=== PATIENT | male | born 1990 | race Caucasian/White ===

== ENCOUNTER 2020-06-08 21:19 | Emergency (ER) | payer SELFPAY ==
[2020-06-08] MEDS ORDERED: POVIDONE IODINE 10 % 15 ML UD TOP ONE (21:37)
[2020-06-08] MEDS ORDERED: LIDOCAINE 1% W/ EPINEPHRINE 20 ML VIAL INJ ONE (21:38)
[2020-06-08] MEDS ORDERED: ALPRAZolam 0.25 MG TAB PO ONE (21:43)
[2020-06-08] MEDS ORDERED: SULFA/TRIMETH 800/160 (DS) TAB 1 EA TAB PO ONE (21:48)
--- NOTE | 2020-06-08 22:17 | ED.PDOC ---
History of Present Illness - General Chief Complaint: Laceration Stated Complaint: laceration to Rt leg Time Seen by Provider: 06/08/20 21:43 Source: patient Exam Limitations: no limitations - History of Present Illness Initial Comments: The patient is a 30-year-old male presents emergency room after having cut his right lateral lower leg with one of his hunting knives accidentally this evening while sharpening it. The patient is obviously inebriated. He denies it being intentional. He reports that there is good sensation in the foot distal. He does have a mild numb area just immediately distal to it on the lateral lower leg. Normal dorsalis pedis and posterior tibialis pulses. Good capillary refill. Strength is preserved. Laceration extends through the skin and through the subcutaneous tissue just to the exterior of the muscle belly. Estimated blood loss prior to arrival was probably 30 cc. No other obvious injuries. The patient does report significant anxiety with a cut. He reports that the knife was clean. He reports that his last tetanus shot was around 3 or 4 years ago. He denies any drug allergies. Timing/Duration: 1-3 hours Severity: moderate Improving Factors: nothing Worsening Factors: nothing Associated Symptoms: denies symptoms Allergies/Adverse Reactions: Allergies NO KNOWN ALLERGY Allergy (Verified 06/08/20 22:09) Home Medications: Ambulatory Orders Sulfa/Trimeth 800/160 (Ds) Tab [Bactrim DS Tab] 1 ea PO BID #14 tab 06/08/20 Review of Systems - Review of Systems Constitutional: States: no symptoms reported EENTM: States: no symptoms reported Respiratory: States: no symptoms reported Cardiology: States: no symptoms reported Gastrointestinal/Abdominal: States: no symptoms reported Genitourinary: States: no symptoms reported Musculoskeletal: States: no symptoms reported Skin: States: no symptoms reported Neurological: States: anxiety Endocrine: States: no symptoms reported All other Systems: No Change from Baseline Past Medical History (General) - Patient Medical History Hx Seizures: No Hx Stroke: No Hx Dementia: No Hx Asthma: Yes Hx of COPD: No Hx Cardiac Disorders: No Hx Congestive Heart Failure: No Hx Pacemaker: No Hx Hypertension: No Hx Thyroid Disease: No Hx Diabetes: No Hx Gastroesophageal Reflux: No Hx Renal Disease: No Hx Cancer: No Hx of HIV: No Hx Hepatitis C: No Hx MRSA: No Surgical History: other - Vaccination History Hx Tetanus, Diphtheria Vaccination: Yes Hx Influenza Vaccination: No Hx Pneumococcal Vaccination: No Immunizations Up to Date: Yes - Social History Hx Tobacco Use: Yes Hx Chewing Tobacco Use: No Hx Alcohol Use: Yes Hx Substance Use: No Hx Substance Use Treatment: No Hx Depression: No Feels Threatened In Home Enviroment: No Feels Threatened In a Relationship: No Hx Physical Abuse: No Hx Emotional Abuse: No Hx Suspected Abuse: No - Activities of Daily Living Hospice Agency (if applicable):: None - Female History Patient is a Female of Child Bearing Age (10 -59 yrs old): No - Triage Comment ED Triage Comment: pt states "i did it to myslef when i was drinking" Family Medical History - Family History Mother Hx Family Asthma: Yes Physical Exam - Physical Exam General Appearance: Alert, Comfortable, No apparent distress Eye Exam: bilateral normal Ears, Nose, Throat: hearing grossly normal Neck: full range of motion Respiratory: no respiratory distress, no accessory muscle use Cardiovascular/Chest: normal peripheral pulses, no edema Peripheral Pulses: dorsalis pedis,right: 2+, dorsalis pedis,left: 2+, posterior tibialis,right: 2+, posterior tibialis,left: 2+ Rectal Exam: deferred Extremity: normal range of motion, no pedal edema, normal capillary refill Neurologic: director advanced II-XII nml as tested, alert, oriented x 3, other - The patient is obviously moderately inebriated. He also does appear to have a mild sensory loss to the area just distal to the laceration. Skin Exam: other - Laceration is approximately 15 cm to the lateral distal third of the right lower leg. Again it does not extend down to the bone but just to the edge of the muscle belly. Comments: Vital Signs - 8 hr 06/08/20 21:20 Temperature 97.7 F Pulse Rate [ 67 pulse ox] Respiratory 16 Rate Blood Pressure 132/89 [Right Arm] O2 Sat by Pulse 98 Oximetry Progress - Progress Progress: 06/08/20 22:17 The patient is a 30-year-old male presented emergency room secondary to having accidentally cut himself while inebriated with one of his own knives. The patient reports that he is up-to-date on his tetanus shot. He is going to be placed on Bactrim for the next 7 days for the infection. He does need to wash the wound once or twice daily with an antibacterial soap and water. He can cover the edge with Neosporin. Sutures need to come out in around 10 days. He can additionally use an Benoit wrap over the wound to avoid rubbing the sutures on pants or a boot top. He does need to monitor for any evidence of infection. The patient will likely have a small numb area just distal to the laceration from now on and he does need to be aware of this to avoid any unknown injuries in the future. ER warnings are given. Procedure note: Risk and benefits of repair were explained and patient agrees to proceed. Wound is irrigated with 1 L of saline with additional Betadine added and then washed further with hydrogen peroxide. Fascial layer over the lateral muscle belly was reapproximated with 3 simple sutures of 3-0 Vicryl. Skin was reapproximated with 12 sutures of 2-0 Ethilon. Patient tolerated this well. 1% lidocaine with epinephrine was used x15 cc as a local anesthetic prior. padma [email or web address] [id number] Departure - Departure Clinical Impression: Accidental laceration Disposition: Discharge to Home or Self Care Condition: Fair Departure Forms: ED Discharge - Pt. Copy, Patient Portal Self Enrollment Diet: regular diet Activity: increase activity as tolerated Prescriptions: Sulfa/Trimeth 800/160 (Ds) Tab [Bactrim DS Tab] 1 ea PO BID #14 tab Home Medications: Ambulatory Orders Sulfa/Trimeth 800/160 (Ds) Tab [Bactrim DS Tab] 1 ea PO BID #14 tab 06/08/20 Additional Instructions: The patient is a 30-year-old male presented emergency room secondary to having accidentally cut himself while inebriated with one of his own knives. The patient reports that he is up-to-date on his tetanus shot. He is going to be placed on Bactrim for the next 7 days for the infection. He does need to wash the wound once or twice daily with an antibacterial soap and water. He can cover the edge with Neosporin. Sutures need to come out in around 10 days. He can additionally use an Benoit wrap over the wound to avoid rubbing the sutures on pants or a boot top. He does need to monitor for any evidence of infection. The patient will likely have a small numb area just distal to the laceration from now on and he does need to be aware of this to avoid any unknown injuries in the future. ER warnings are given.
[2020-06-08 22:32] VITALS: BP 125/78; TEMP 97; O2SAT 99
== END 2020-06-08 22:32 | disposition home or self-care (01) ==
LOC: ER 21:19
DX: S81.811A Laceration without foreign body, right lower leg, initial encounter (principal); F10.129 Alcohol abuse with intoxication, unspecified; J45.909 Unspecified asthma, uncomplicated; W26.0XXA Contact with knife, initial encounter; Y93.89 Activity, other specified; Y92.9 Unspecified place or not applicable; Z87.891 Personal history of nicotine dependence